=== PATIENT | male | born 1965 | race Caucasian/White ===

== ENCOUNTER → 2016-07-16 | Outpatient (CLI) | payer MEDICARE ==
[2016-07-16 11:58] LABS: Basophils % (A) 0 %; CHCM 33.3; Eosinophils # (A) 0.2 k/uL (0-0.7); Eosinophils % (A) 3 %; HCT 49.3 % (39.0-53.0); HDW 2.61; HGB 16.4 gm/dL (13.0-17.5); Luc # (Auto) 0.16; Luc % (Auto) 2; Lymphocytes # (A) 1.5 k/uL (1.0-4.8); Lymphocytes % (A) 21 %; MCHC 33.1 g/dL (31.0-37.0); MCV 81.5 fL (80.0-100.0); Mean Platelet Volume 6.8; Monocytes # (A) 0.4 k/uL (0-1.0); Monocytes % (A) 6 %; Neutrophils # (A) 4.9 k/uL (1.3-7.7); Neutrophils % (A) 68 %; RBC 6.06 m/uL (4.30-5.90); RDW 13.4 % (11.5-15.5); WBC 7.2 k/uL (3.8-10.6); WBC (Perox) 6.59
[2016-07-16 12:30] LABS: ALT 29 U/L (21-72); AST 30 U/L (17-59); Alkaline Phosphatase 84 U/L (38-126); Anion Gap 8 mmol/L; Blood Urea Nitrogen 13 mg/dL (9-20); Calcium 9.8 mg/dL (8.4-10.2); Carbon Dioxide 27 mmol/L (22-30); Chloride 106 mmol/L (98-107); Glucose 111 mg/dL (74-99); Non-African American GFR(MDRD) >60 (>60 ml/min/1.73 sqM); Potassium 4.5 mmol/L (3.5-5.1); Sodium 141 mmol/L (137-145); Total Bilirubin 0.8 mg/dL (0.2-1.3); Total Protein 7.4 g/dL (6.3-8.2)
== END | disposition home or self-care (01) ==
LOC: LABWHC1 10:24
PROVIDERS: ATTEND Internal Medicine Infectious Disease
DX: Z09 Encounter for follow-up examination after completed treatment for conditions other than malignant neoplasm (principal); Z86.19 Personal history of other infectious and parasitic diseases
CPT/HCPCS: 36415; 80053; 82105; 84443; 85025

== ENCOUNTER → 2016-09-10 | Outpatient (CLI) | payer MEDICARE ==
[2016-09-10 11:43] LABS: Hepatitis B Surface Ag Index 0.05
[2016-09-10 12:01] LABS: Hepatitis B Surface Antibody Negative (Negative)
[2016-09-14 17:18] LABS: HCV Qualitative Result DETECTED (Not detected)
== END | disposition home or self-care (01) ==
LOC: LABWHC1 10:24
PROVIDERS: ATTEND Internal Medicine Infectious Disease
DX: Z09 Encounter for follow-up examination after completed treatment for conditions other than malignant neoplasm (principal); Z86.19 Personal history of other infectious and parasitic diseases
CPT/HCPCS: 36415; 86704; 86706; 87340; 87522

== ENCOUNTER → 2018-02-28 | Outpatient (CLI) | payer MEDICARE ==
--- NOTE | 2018-02-28 14:00 | US ---
EXAMINATION TYPE: US abdomen complete DATE OF EXAM: 02/28/2018 COMPARISON: NONE CLINICAL HISTORY: 52-year-old male B18.2 CHR VIRAL HEP C. TECHNIQUE: Multiple sonographic images of the abdomen are obtained. FINDINGS: EXAM MEASUREMENTS: Liver Length: 14.6 cm Gallbladder Wall: 0.2 cm CBD: 6.1 mm Spleen: 11.2 cm Right Kidney: 11.0 x 5.0 x 5.0 cm Left Kidney: 11.5 x 6.2 x 5.3 cm Pancreas: Only a small portion of the pancreatic neck and body are visualized. Remainder suboptimall y visualized due to shadowing from bowel gas. Liver: Slightly heterogeneous and echogenic appearance. No focal lesion. Gallbladder: wnl Evidence for sonographic Her's sign: No CBD: Measuring upper limits of normal, distal portion obscured by bowel gas Spleen: wnl Right Kidney: No hydronephrosis. Left Kidney: No hydronephrosis. Upper IVC: wnl Abd Aorta: wnl IMPRESSION: 1. Borderline bile duct dilatation (6.1 mm). Correlate with alkaline phosphatase and bilirubin levels to exclude early biliary obstruction. 2. Slightly heterogeneous and echogenic appearance of the liver suggests underlying hepatic steatosis or nonspecific hepatocellular disease. No ultrasound evidence for hepatoma.
== END | disposition home or self-care (01) ==
LOC: RADUSWWP 12:09
PROVIDERS: ATTEND Internal Medicine Infectious Disease
DX: K83.8 Other specified diseases of biliary tract (principal); R93.2 Abnormal findings on diagnostic imaging of liver and biliary tract; B18.2 Chronic viral hepatitis C
CPT/HCPCS: 76700

== ENCOUNTER → 2018-08-30 | Outpatient (CLI) | payer MEDICARE ==
[2018-08-30 12:10] LABS: Basophils % (A) 0 %; Eosinophils % (A) 0 %; HCT 46.5 % (39.0-53.0); Lymphocytes # (A) 0.7 k/uL (1.0-4.8); Lymphocytes % (A) 8 %; MCH 26.1 pg (25.0-35.0); MCHC 32.2 g/dL (31.0-37.0); MCV 81.1 fL (80.0-100.0); Mean Platelet Volume 6.8; Monocytes # (A) 0.5 k/uL (0-1.0); Monocytes % (A) 6 %; Neutrophils # (A) 6.9 k/uL (1.3-7.7); Neutrophils % (A) 83 %; Platelet Count 211 k/uL (150-450); RBC 5.73 m/uL (4.30-5.90); RDW 14.5 % (11.5-15.5); WBC 8.3 k/uL (3.8-10.6)
[2018-08-30 16:37] LABS: Albumin 4.4 g/dL (3.80-4.90); Albumin/Globulin Ratio 1.63 (1.60-3.17); Anion Gap 9.4 mmol/L (4.00-12.00); BUN/Creat Ratio 10.83 Ratio (12.00-20.00); Calcium 9.4 mg/dL (8.7-10.3); Carbon Dioxide 26.6 mmol/L (21.6-31.8); Globulin 2.7 g/dL (1.6-3.3); Potassium 4.5 mmol/L (3.5-5.5); Total Bilirubin 0.3 mg/dL (0.3-1.2); Total Protein 7.1 g/dL (6.2-8.2)
== END | disposition home or self-care (01) ==
LOC: LABWHC1 10:59
PROVIDERS: ATTEND Internal Medicine Infectious Disease
DX: B18.2 Chronic viral hepatitis C (principal)
CPT/HCPCS: 36415; 80053; 82105; 85025

== ENCOUNTER → 2018-10-10 | Outpatient (CLI) | payer MEDICARE ==
[2018-10-11 13:39] LABS: LOG HCV IU/mL <1.08 (<1.08)
== END | disposition home or self-care (01) ==
LOC: LABWHC1 11:26
PROVIDERS: ATTEND Internal Medicine Infectious Disease
DX: B18.2 Chronic viral hepatitis C (principal); R79.89 Other specified abnormal findings of blood chemistry
CPT/HCPCS: 36415; 84403; 87522

== ENCOUNTER 2020-01-10 06:23 | Day surgery (SDC) | payer MEDICARE ==
[2020-01-08 12:48] VITALS: BMI 29.2
[~2020-01-10 06:23] MED LIST: FAMOTIDINE 20 MG/2 ML VIAL IV ONE; LACTATED RINGERS 1,000 ML IV SCH; MIDAZOLAM 2 MG/2 ML VIAL IV PRN; ONDANSETRON 4 MG/2 ML VIAL IVP ONE; fentaNYL (PF) 50 MCG/ML 2 ML AMP IV PRN
[2020-01-10] MEDS ORDERED: LIDOCAINE 1% (10MG/ML) FOR IV START INTRADERMA ONE (06:59)
[2020-01-10] MEDS ORDERED: ePHEDrine SULFATE/0.9% NACL/PF 50 MG/5 ML SYRINGE IV ONE (07:25)
[2020-01-10] MEDS ORDERED: SUCCINYLCHOLINE CHLORIDE 100 MG/5 ML SYR IV ONE (07:25)
[2020-01-10] MEDS ORDERED: LIDOCAINE 1% INJ 10MG/ML (20 ML MDV) ONE (07:25)
[2020-01-10] MEDS ORDERED: PROPOFOL 10 MG/ML 20 ML VIAL IV ONE (07:25)
[2020-01-10] MEDS ORDERED: fentaNYL (PF) 50 MCG/ML 2 ML AMP ONE (07:25)
[2020-01-10] MEDS ORDERED: MIDAZOLAM 2 MG/2 ML VIAL ONE (07:25)
[2020-01-10] MEDS ORDERED: LIDOCAINE 1%-EPI 1:100,000 20 ML VIAL SQ ONE ×2 (07:46)
[2020-01-10] MEDS ORDERED: LACTATED RINGERS 1,000 ML IV ONE ×2 (08:13)
[2020-01-10] MEDS ORDERED: BACITRACIN ZINC 500 UNIT/GM OINT 28.4 GM TUBE TOPICAL ONE (08:36)
--- NOTE | 2020-01-10 08:47 | P.OP ---
Date of Procedure: 01/10/20 Preoperative Diagnosis: Bilateral neck sebaceous cysts Postoperative Diagnosis: Same Procedure(s) Performed: Excision left neck sebaceous cyst 8.5 cm with complex closure Excision right neck sebaceous cyst 6.7 cm with complex closure Anesthesia: SAROJ Surgeon: Andrea Hull Estimated Blood Loss (ml): 5 Pathology: other (Bilateral neck sebaceous cysts) Condition: stable Disposition: PACU Indications for Procedure: This is a 54-year-old white male with bilateral neck cysts which have been enlarging. Since his exam in the office the right neck cyst did open and drain and is therefore smaller but is increasing in size again with some overlying skin scarring Operative Findings: Bilateral cysts with scarring of the overlying skin Description of Procedure: The patient was brought in the operative suite and placed in a supine position. Patient underwent induction of general anesthesia with oral endotracheal intubation without difficulty. Patient was prepped and draped in usual aseptic fashion. 1 100,000 epinephrine was infused subcutaneously and field block fashion. This was left to work for 7 minutes vasoconstrictive effect. Right neck lesion excised in elliptical fashion in the direction of the right skin tension lines which included the overlying skin as it had scarring stuck to the underlying lesion. This is excised down to the platysmal layer including a minimal a portion of the platysma due to scarring. Facial nerve was left intact due to the fact that it was deep to the platysma layer. Hemostasis was noted to be good with normal cautery and bipolar cautery. The edges of the wound are undermined widely and tissue was rotated into the defect due to the overlying skin been removed and therefore required complex closure in order to close. Deep subcutaneous and superficial subcutaneous tissues were closed with inverted interrupted 4-0 Vicryl suture skin closed with running locking 4-0 Prolene suture and bacitracin ointment and sterile dressing was placed. Attention was then turned to the left. Procedure was followed in the same fashion all of this was a large lesion. This was excised in elliptical fashion including the overlying skin down to and including a minimal portion of the platysma layer on the left. This is a large lesion with more scarring. The lesion appeared well encapsulated. Once this was excised grossly entirely the site was underlying widely and again necessitated complex closure as it did on the right and closure was the same with the deep and superficial subcutaneous layers closed with inverted interrupted 4-0 Vicryl suture and skin closed with running 4-0 prolene suture. bacitracin ointment sterile dressing were placed. The facial nerve branches were deep to the platysmal layer and therefore were not encountered during the procedure. Patient tolerated procedure well was transferred postoperative recovery area in satisfactory condition after extubation
[2020-01-10 08:58] VITALS: TEMP 97.6
[2020-01-10 09:37] VITALS: BP 134/80; PULSE 78; RESP 18
== END 2020-01-10 10:03 | disposition home or self-care (01) ==
LOC: OR 06:23
PROVIDERS: ATTEND Otolaryngology
DX: L72.3 Sebaceous cyst (principal); L72.0 Epidermal cyst; Z88.2 Allergy status to sulfonamides; Z79.899 Other long term (current) drug therapy; Z98.1 Arthrodesis status; Z98.890 Other specified postprocedural states; Z87.891 Personal history of nicotine dependence
CPT/HCPCS: 88304; 11426 ×2; 13132; 13133 ×2; J2250; J2405; J0690; J2001; J3010; J0330; J2704